=== PATIENT | male | born 1955 | race Caucasian/White ===

== ENCOUNTER → 2017-01-08 | Outpatient (CLI) | payer MEDICARE | LOC: SLEEP 21:30 | DX: G47.10 Hypersomnia, unspecified (principal); R53.81 Other malaise; R53.83 Other fatigue | CPT/HCPCS: 95810 ==

== ENCOUNTER → 2021-09-20 | Outpatient (CLI) | payer MEDICARE | LOC: MRI 09:17 | DX: M75.101 Unspecified rotator cuff tear or rupture of right shoulder, not specified as traumatic (principal) | CPT/HCPCS: 73221 ==